=== PATIENT | female | born 1955 | race African-American/Black ===

== ENCOUNTER 2016-11-17 20:41 | Inpatient (IN) | payer MEDICAID ==
[~2016-11-17] VITALS: Ht 172.7 cm; Wt 113.5 kg
[~2016-11-17 20:41] MED LIST: ACET325T53 PO; ALBU2.5V38 NEB; ALEN70TA3 PO; BUME1TAB4 PO; CYAN500T4 PO; DEXT1DRO3 EACHEYE; DOXY150T PO; GUAI600T PO; INSU100I19 SQ; LACT10SO7 PO; LEVA15HF5 INH; MAGN400T6 PO; METF500T7 PO; NIFE60TA72 PO; OXYGEN; PANT40TA2 PO; PRED20TA PO; RIVA10TA PO; RXVAN XX; TRAM50TA92 PO
[2016-11-17] MEDS ORDERED: FUROSEMIDE 40 MG/4 ML VIAL IV ONE (21:00)
[2016-11-17] MEDS ORDERED: ASPIRIN 325 MG TABLET PO ONE (21:00)
[2016-11-17] MEDS ORDERED: ASPIRIN 325 MG TABLET ONE (21:22)
[2016-11-17] MEDS ORDERED: FUROSEMIDE 40 MG/4 ML VIAL ONE (21:22)
[2016-11-17 21:24] LABS: BASOPHILS # (AUTO) 0.2 /CMM (0.0-0.2); BASOPHILS % (AUTO) 2.2 % (0.0-2.0); EOSINOPHILS # (AUTO) 0.2 /CMM (0.0-0.7); HEMATOCRIT 41 % (33-45); HEMOGLOBIN 12.6 g/dL (11.5-14.8); LYMPHOCYTES % (AUTO) 10.2 % (20.0-44.0); MEAN CORPUSCULAR HEMOGLOBIN 23 PG (26.0-33.0); MEAN CORPUSCULAR HGB CONC 30 g/dl (31.0-36.0); MEAN CORPUSCULAR VOLUME 76 fL (82-100); MONOCYTES # (AUTO) 1.1 /CMM (0.1-1.30); MONOCYTES % (AUTO) 10.6 % (2.0-12.0); NEUTROPHILS # (AUTO) 7.6 /CMM (1.8-8.9); PLATELET COUNT (AUTO) 296 /CMM (150-450); RDW COEFFICIENT OF VARIATION 18.8 (11.5-15.0); RED BLOOD CELL COUNT(AUTO) 5.47 MIL/uL (4.0-5.2); WHITE BLOOD COUNT (AUTO) 10.1 K/uL (4.3-11.0)
[2016-11-17 21:33] LABS: CALCIUM, SERUM 8.3 mg/dL (8.5-10.1); CARBON DIOXIDE 27 mmol/L (21-32); CHLORIDE 105 mmol/L (98-107); CREATININE 0.7 mg/dL (0.6-1.3); GLUCOSE 121 mg/dL (74-106); INR 1.24 (0.87-1.13); SODIUM SERUM 139 mmol/L (136-145); UREA NITROGEN, BLOOD 18 mg/dL (7-18)
[2016-11-17 21:42] LABS: TROPONIN I < 0.017 ng/mL (0.00-0.056)
[2016-11-17 21:46] LABS: B-TYPE NATRIURETIC PEPTIDE 1545 PG/ML (0-125)
[2016-11-17 21:54] LABS: EOSINOPHILS % (MANUAL) 3 % (0-4); LYMPHOCYTES % (MANUAL) 13 % (16-48); MONOCYTES % (MANUAL) 9 % (0-11.0); NEUTROPHILS % (MANUAL) 75 (42-76)
[2016-11-17] MEDS: BLOOD SUGAR DIAGNOSTIC 1 EACH STRIP IN SCH (22:00)
[2016-11-17] MEDS ORDERED: Z GUARD REMEDY 2 OZ OINT TP PRN (22:00)
[2016-11-17] MEDS ORDERED: MAGNESIUM HYDROXIDE 30 ML UDC PO PRN (22:00)
[2016-11-17] MEDS ORDERED: ONDANSETRON HCL/PF 4 MG/2 ML VIAL IVP PRN (22:00)
[2016-11-17] MEDS ORDERED: DEXTROSE 50%-WATER 50 ML DISP.SYRIN IV PRN (22:00)
[2016-11-17] MEDS ORDERED: ZOLPIDEM TARTRATE 5 MG TABLET PO PRN (22:00)
[2016-11-17] MEDS ORDERED: MAG HYDROX/AL HYDROX/SIMETH 30 ML UDC PO PRN (22:00)
[2016-11-17] MEDS ORDERED: ALBUTEROL FS 2.5 MG/3 ML VIAL.NEB NEB PRN (22:30)
[2016-11-17] MEDS ORDERED: MORPHINE SULFATE INJ 2 MG/ML DISP.SYRIN ONE (22:41)
[2016-11-17 23:00] VITALS: BP 112/80
[2016-11-18] VITALS (7 sets, daily range): BP systolic 94–120; BP diastolic 57–80
[2016-11-18 00:30] LABS: ABG BASE EXCESS 0.7 mmol/L; ABG OXYGEN SATURATION 92.2 % (92.0-98.5); ABG PCO2 58.1 mmHg (35.0-45.0); ABG PH 7.305 (7.350-7.450); AaDO2 432.4 mmHg; COHb 1.8 % (0.5-1.5); MetHb 0.6 % (0.0-1.5); SITE, ABG Right Radial; VENT MODE, BG NRB
[2016-11-18 03:25] LABS: EOSINOPHILS # (AUTO) 0.3 /CMM (0.0-0.7); EOSINOPHILS % (AUTO) 2.7 % (0.0-6.0); HEMATOCRIT 42 % (33-45); HEMOGLOBIN 12.5 g/dL (11.5-14.8); LYMPHOCYTES % (AUTO) 10.1 % (20.0-44.0); MEAN CORPUSCULAR HEMOGLOBIN 23 PG (26.0-33.0); MEAN CORPUSCULAR HGB CONC 30 g/dl (31.0-36.0); MEAN CORPUSCULAR VOLUME 77 fL (82-100); MONOCYTES # (AUTO) 2.1 /CMM (0.1-1.30); MONOCYTES % (AUTO) 21.1 % (2.0-12.0); NEUTROPHILS # (AUTO) 6.6 /CMM (1.8-8.9); NEUTROPHILS % (AUTO) 66.1 % (43.0-81.0); PLATELET COUNT (AUTO) 225 /CMM (150-450); RDW COEFFICIENT OF VARIATION 19.1 (11.5-15.0); RED BLOOD CELL COUNT(AUTO) 5.39 MIL/uL (4.0-5.2)
[2016-11-18 03:48] LABS: ALBUMIN 3.1 g/dL (3.4-5.0); BILIRUBIN,TOTAL 0.6 mg/dL (0.2-1.0); CALCIUM, SERUM 7.9 mg/dL (8.5-10.1); CREATININE 0.6 mg/dL (0.6-1.3); MAGNESIUM 1.8 mg/dL (1.8-2.4); PHOSPHORUS 4.6 mg/dL (2.5-4.9); POTASSIUM 4.2 mmol/L (3.5-5.1); TOTAL PROTEIN, SERUM 7.7 g/dL (6.4-8.2)
[2016-11-18 04:51] LABS: EOSINOPHILS % (MANUAL) 1 % (0-4); LYMPHOCYTES % (MANUAL) 10 % (16-48); MONOCYTES % (MANUAL) 5 % (0-11.0); NEUTROPHILS % (MANUAL) 84 (42-76)
[2016-11-18] MEDS: BLOOD SUGAR DIAGNOSTIC 1 EACH STRIP IN SCH ×4 (07:39→22:33)
[2016-11-18] MEDS ORDERED: POLYVINYL ALCOHOL 15 ML BOTTLE EACHEYE PRN (08:30)
[2016-11-18] MEDS: MORPHINE SULFATE INJ 2 MG/ML DISP.SYRIN IV PRN ×4 (08:39→23:11)
[2016-11-18] MEDS: LACTULOSE 10 G/15 ML UDC (PYXIS) PO SCH ×3 (08:41→17:19)
[2016-11-18] MEDS: METFORMIN XR 500 MG TAB.SR.24H PO SCH ×2 (08:41→17:19)
[2016-11-18] MEDS: CYANOCOBALAMIN 500 MCG TABLET PO SCH (08:42)
[2016-11-18] MEDS: FUROSEMIDE 40 MG/4 ML VIAL IV SCH ×2 (08:42→17:19)
[2016-11-18] MEDS: NIFEdipine XL (30MG) 30 MG TAB PO SCH (08:42)
[2016-11-18] MEDS: GUAIFENESIN LA 600 MG TABLET.SA PO SCH ×2 (08:42→20:30)
[2016-11-18] MEDS: RIVAROXABAN 10 MG TABLET PO SCH (08:46)
[2016-11-18] MEDS: HYDROCODONE/APAP 5/325MG 1 EACH TABLET PO PRN (11:46)
[2016-11-18] MEDS ORDERED: ALBUTEROL FS 2.5 MG/3 ML VIAL.NEB NEB PRN (13:30)
[2016-11-18] MEDS: NEOMY SULF/BACITRAC ZN/POLY 15 GM TUBE TP SCH (21:15)
[2016-11-18] MEDS: INSULIN DETEMIR 100 UNIT/ML CARTRIDGE SQ SCH (22:00)
[2016-11-19] VITALS: BP 116/68
[2016-11-19] MEDS: HYDROCODONE/APAP 5/325MG 1 EACH TABLET PO PRN ×2 (02:51→15:39)
[2016-11-19 04:00] VITALS: BP 97/56
[2016-11-19] MEDS: BLOOD SUGAR DIAGNOSTIC 1 EACH STRIP IN SCH ×4 (06:37→21:50)
[2016-11-19] MEDS: MORPHINE SULFATE INJ 2 MG/ML DISP.SYRIN IV PRN ×3 (07:57→23:29)
[2016-11-19] MEDS: LACTULOSE 10 G/15 ML UDC (PYXIS) PO SCH ×3 (07:57→17:22)
[2016-11-19 08:00] VITALS: BP 111/63
[2016-11-19] MEDS: NIFEdipine XL (30MG) 30 MG TAB PO SCH (08:03)
[2016-11-19] MEDS: METFORMIN XR 500 MG TAB.SR.24H PO SCH ×2 (08:03→16:08)
[2016-11-19] MEDS: GUAIFENESIN LA 600 MG TABLET.SA PO SCH ×2 (08:03→21:54)
[2016-11-19] MEDS: FUROSEMIDE 40 MG/4 ML VIAL IV SCH ×6 (08:03→16:33)
[2016-11-19] MEDS: CYANOCOBALAMIN 500 MCG TABLET PO SCH (08:03)
[2016-11-19] MEDS: PANTOPRAZOLE 40 MG TABLET.DR PO SCH (08:04)
[2016-11-19] MEDS: NEOMY SULF/BACITRAC ZN/POLY 15 GM TUBE TP SCH (08:04)
[2016-11-19] MEDS: RIVAROXABAN 10 MG TABLET PO SCH (08:12)
[2016-11-19 10:10] LABS: ABG BASE EXCESS 4.9 mmol/L; ABG OXYGEN SATURATION 92.1 % (92.0-98.5); ABG PCO2 60.9 mmHg (35.0-45.0); ABG PH 7.343 (7.350-7.450); ABG PO2 71.4 mmHg (75.0-100.0); AaDO2 435.1 mmHg; COHb 1.5 % (0.5-1.5); MetHb 0.9 % (0.0-1.5); O2Hb 89.9 % (94.0-97.0); SITE, ABG Right Radial; VENT MODE, BG NON REBREATHER
[2016-11-19 12:13] LABS: ALBUMIN 3.1 g/dL (3.4-5.0); BASOPHILS # (AUTO) 0.4 /CMM (0.0-0.2); BASOPHILS % (AUTO) 3.1 % (0.0-2.0); BILIRUBIN,TOTAL 0.8 mg/dL (0.2-1.0); CALCIUM, SERUM 8.5 mg/dL (8.5-10.1); CREATININE 0.6 mg/dL (0.6-1.3); EOSINOPHILS # (AUTO) 0.2 /CMM (0.0-0.7); EOSINOPHILS % (AUTO) 1.6 % (0.0-6.0); HEMATOCRIT 41 % (33-45); HEMOGLOBIN 12.5 g/dL (11.5-14.8); LYMPHOCYTES # (AUTO) 0.5 /CMM (0.8-4.8); LYMPHOCYTES % (AUTO) 4.1 % (20.0-44.0); MAGNESIUM 1.6 mg/dL (1.8-2.4); MEAN CORPUSCULAR HEMOGLOBIN 23 PG (26.0-33.0); MEAN CORPUSCULAR HGB CONC 30 g/dl (31.0-36.0); MEAN CORPUSCULAR VOLUME 76 fL (82-100); MONOCYTES # (AUTO) 1.2 /CMM (0.1-1.30); MONOCYTES % (AUTO) 10.7 % (2.0-12.0); NEUTROPHILS # (AUTO) 9.3 /CMM (1.8-8.9); NEUTROPHILS % (AUTO) 80.5 % (43.0-81.0); PHOSPHORUS 3.9 mg/dL (2.5-4.9); PLATELET COUNT (AUTO) 230 /CMM (150-450); POTASSIUM 3.7 mmol/L (3.5-5.1); RDW COEFFICIENT OF VARIATION 18.4 (11.5-15.0); TOTAL PROTEIN, SERUM 8.2 g/dL (6.4-8.2); WHITE BLOOD COUNT (AUTO) 11.6 K/uL (4.3-11.0)
[2016-11-19 16:00] VITALS: BP 111/61
[2016-11-19 20:14] VITALS: BP 117/67
[2016-11-19] MEDS: INSULIN DETEMIR 100 UNIT/ML CARTRIDGE SQ SCH (21:50)
[2016-11-19] MEDS: TRAMADOL HCL 50 MG TABLET PO PRN (21:55)
[2016-11-20] VITALS (18 sets, daily range): BP systolic 89–129; BP diastolic 47–90
[2016-11-20] MEDS: MORPHINE SULFATE INJ 2 MG/ML DISP.SYRIN IV PRN (05:48)
[2016-11-20] MEDS: BLOOD SUGAR DIAGNOSTIC 1 EACH STRIP IN SCH ×4 (07:30→21:17)
[2016-11-20] MEDS: HYDROCODONE/APAP 5/325MG 1 EACH TABLET PO PRN (07:46)
[2016-11-20] MEDS: PANTOPRAZOLE 40 MG TABLET.DR PO SCH (07:46)
[2016-11-20] MEDS: FUROSEMIDE 40 MG/4 ML VIAL IV SCH ×3 (08:09→17:41)
[2016-11-20] MEDS: GUAIFENESIN LA 600 MG TABLET.SA PO SCH ×2 (08:09→21:17)
[2016-11-20] MEDS: LACTULOSE 10 G/15 ML UDC (PYXIS) PO SCH ×3 (08:09→17:42)
[2016-11-20] MEDS: CYANOCOBALAMIN 500 MCG TABLET PO SCH (08:11)
[2016-11-20] MEDS: NIFEdipine XL (30MG) 30 MG TAB PO SCH (08:11)
[2016-11-20] MEDS: RIVAROXABAN 10 MG TABLET PO SCH (08:12)
[2016-11-20] MEDS: NEOMY SULF/BACITRAC ZN/POLY 15 GM TUBE TP SCH (08:13)
[2016-11-20] MEDS: METFORMIN XR 500 MG TAB.SR.24H PO SCH ×2 (08:15→17:00)
[2016-11-20 09:09] LABS: ABG BASE EXCESS 9.2 mmol/L; ABG OXYGEN SATURATION 79.8 % (92.0-98.5); ABG PCO2 64.4 mmHg (35.0-45.0); ABG PH 7.375 (7.350-7.450); ABG PO2 46.6 mmHg (75.0-100.0); COHb 1.7 % (0.5-1.5); MetHb 0.7 % (0.0-1.5); O2Hb 77.9 % (94.0-97.0); SITE, ABG Right Radial
[2016-11-20 10:31] LABS: EOSINOPHILS # (AUTO) 0.2 /CMM (0.0-0.7); EOSINOPHILS % (AUTO) 1.7 % (0.0-6.0); HEMATOCRIT 42 % (33-45); HEMOGLOBIN 12.7 g/dL (11.5-14.8); LYMPHOCYTES # (AUTO) 0.8 /CMM (0.8-4.8); LYMPHOCYTES % (AUTO) 7.8 % (20.0-44.0); MEAN CORPUSCULAR HEMOGLOBIN 23 PG (26.0-33.0); MEAN CORPUSCULAR HGB CONC 30 g/dl (31.0-36.0); MEAN CORPUSCULAR VOLUME 77 fL (82-100); MONOCYTES # (AUTO) 0.8 /CMM (0.1-1.30); MONOCYTES % (AUTO) 7.6 % (2.0-12.0); NEUTROPHILS % (AUTO) 82.9 % (43.0-81.0); PLATELET COUNT (AUTO) 239 /CMM (150-450); RED BLOOD CELL COUNT(AUTO) 5.46 MIL/uL (4.0-5.2); WHITE BLOOD COUNT (AUTO) 10.8 K/uL (4.3-11.0)
[2016-11-20 10:44] LABS: CALCIUM, SERUM 8.6 mg/dL (8.5-10.1); CREATININE 0.5 mg/dL (0.6-1.3); MAGNESIUM 1.5 mg/dL (1.8-2.4); POTASSIUM 3.7 mmol/L (3.5-5.1)
[2016-11-20 10:47] LABS: ALBUMIN 2.9 g/dL (3.4-5.0); BILIRUBIN,DIRECT 0.2 mg/dL (0.0-0.2); BILIRUBIN,TOTAL 0.8 mg/dL (0.2-1.0)
[2016-11-20] MEDS ORDERED: IV NS 0.9% 250 ML IV ONE (12:15)
[2016-11-20] MEDS ORDERED: IV SET PRIMARY PUMP SET 1 EA INFUS.SET MC ONE (12:16)
[2016-11-20] MEDS ORDERED: SECONDARY IV SET 1 EA INFUS.SET MC ONE (12:20)
[2016-11-20] MEDS: Magnesium 1GM/D5W 100ML PREMIX 100 ML IV SCH ×2 (12:30→14:51)
[2016-11-20] MEDS ORDERED: FUROSEMIDE 40 MG/4 ML VIAL IV ONE (13:00)
[2016-11-20] MEDS: ALBUTEROL FS 2.5 MG/3 ML VIAL.NEB NEB SCH ×2 (14:34→19:18)
[2016-11-20] MEDS: TRAMADOL HCL 50 MG TABLET PO PRN ×2 (15:41→21:18)
[2016-11-20] MEDS: INSULIN DETEMIR 100 UNIT/ML CARTRIDGE SQ SCH (21:20)
[2016-11-21] VITALS (30 sets, daily range): BP systolic 87–156; BP diastolic 50–85
[2016-11-21] MEDS: ALBUTEROL FS 2.5 MG/3 ML VIAL.NEB NEB SCH ×4 (01:29→20:01)
[2016-11-21] MEDS: TRAMADOL HCL 50 MG TABLET PO PRN ×2 (04:04→19:52)
[2016-11-21 06:49] LABS: EOSINOPHILS # (AUTO) 0.3 /CMM (0.0-0.7); EOSINOPHILS % (AUTO) 2.8 % (0.0-6.0); HEMATOCRIT 40 % (33-45); HEMOGLOBIN 12.2 g/dL (11.5-14.8); LYMPHOCYTES # (AUTO) 0.7 /CMM (0.8-4.8); LYMPHOCYTES % (AUTO) 7.1 % (20.0-44.0); MEAN CORPUSCULAR HEMOGLOBIN 24 PG (26.0-33.0); MEAN CORPUSCULAR HGB CONC 31 g/dl (31.0-36.0); MEAN CORPUSCULAR VOLUME 77 fL (82-100); MONOCYTES # (AUTO) 1.1 /CMM (0.1-1.30); MONOCYTES % (AUTO) 10.4 % (2.0-12.0); NEUTROPHILS # (AUTO) 8.2 /CMM (1.8-8.9); NEUTROPHILS % (AUTO) 79.7 % (43.0-81.0); PLATELET COUNT (AUTO) 234 /CMM (150-450); RDW COEFFICIENT OF VARIATION 19.1 (11.5-15.0); RED BLOOD CELL COUNT(AUTO) 5.18 MIL/uL (4.0-5.2); WHITE BLOOD COUNT (AUTO) 10.3 K/uL (4.3-11.0)
[2016-11-21 07:18] LABS: CALCIUM, SERUM 8.6 mg/dL (8.5-10.1); CREATININE 0.5 mg/dL (0.6-1.3); MAGNESIUM 1.7 mg/dL (1.8-2.4); PHOSPHORUS 3.7 mg/dL (2.5-4.9); POTASSIUM 3.7 mmol/L (3.5-5.1)
[2016-11-21] MEDS: BLOOD SUGAR DIAGNOSTIC 1 EACH STRIP IN SCH ×4 (08:04→21:05)
[2016-11-21] MEDS ORDERED: GUAIFENESIN LA 600 MG TABLET.SA PO ONE (08:04)
[2016-11-21] MEDS: LACTULOSE 10 G/15 ML UDC (PYXIS) PO SCH ×3 (08:13→17:13)
[2016-11-21] MEDS: CYANOCOBALAMIN 500 MCG TABLET PO SCH (08:13)
[2016-11-21] MEDS: NIFEdipine XL (30MG) 30 MG TAB PO SCH (08:13)
[2016-11-21] MEDS: METFORMIN XR 500 MG TAB.SR.24H PO SCH ×2 (08:13→17:13)
[2016-11-21] MEDS: PANTOPRAZOLE 40 MG TABLET.DR PO SCH (08:13)
[2016-11-21] MEDS: GUAIFENESIN LA 600 MG TABLET.SA PO SCH ×2 (08:13→21:05)
[2016-11-21] MEDS: RIVAROXABAN 10 MG TABLET PO SCH (08:15)
[2016-11-21] MEDS: FUROSEMIDE 40 MG/4 ML VIAL IV SCH ×2 (08:16→18:22)
[2016-11-21] MEDS: NEOMY SULF/BACITRAC ZN/POLY 15 GM TUBE TP SCH (08:16)
[2016-11-21 09:19] LABS: ABG BASE EXCESS 8.4 mmol/L; ABG OXYGEN SATURATION 84.4 % (92.0-98.5); ABG PCO2 53.7 mmHg (35.0-45.0); ABG PH 7.425 (7.350-7.450); ABG PO2 50.6 mmHg (75.0-100.0); AaDO2 245.5 mmHg; COHb 2.3 % (0.5-1.5); MetHb 0.8 % (0.0-1.5); O2Hb 81.8 % (94.0-97.0); SITE, ABG Right Radial; VENT MODE, BG VENTI-MASK
[2016-11-21] MEDS: FUROSEMIDE 100 MG/10 ML VIAL IV SCH ×3 (12:13→19:49)
[2016-11-21] MEDS: INSULIN REGULAR, HUMAN 100 UNIT/ML 3 ML VIAL SQ PRN (12:15)
[2016-11-21] MEDS ORDERED: SECONDARY IV SET 1 EA INFUS.SET MC ONE (12:19)
[2016-11-21] MEDS: Magnesium 1GM/D5W 100ML PREMIX 100 ML IV SCH ×2 (12:23→14:19)
[2016-11-21 20:20] LABS: APPEARANCE,URINE TURBID (CLEAR); BILIRUBIN,URINE NEGATIVE (NEGATIVE); BLOOD, URINE 2+ Ery/uL (NEGATIVE); COLOR,URINE YELLOW (YELLOW); KETONES,URINE NEGATIVE (NEGATIVE); LEUKOCYTE ESTERASE ,URINE 3+ (NEGATIVE); NITRITE, URINE NEGATIVE (NEGATIVE); PROTEIN,URINE NEGATIVE (NEGATIVE); UGLUCOSE NEGATIVE (NEGATIVE); UROBILINOGEN,URINE 0.2 EU/dL (0.2)
[2016-11-21 20:30] LABS: TRIPLE PHOSPHATE CRYSTAL,UR Many /HPF (None Seen)
[2016-11-21 20:33] LABS: SQUAMOUS EPITHELIAL CELL,UR Few /HPF (None Seen); URINE AMORPHOUS PHOSPHATES Many /HPF (None Seen)
[2016-11-21 20:34] LABS: BACTERIA,URINE Moderate /HPF (None Seen)
[2016-11-21] MEDS: INSULIN DETEMIR 100 UNIT/ML CARTRIDGE SQ SCH (21:17)
[2016-11-22] VITALS (25 sets, daily range): BP systolic 95–138; BP diastolic 33–89
[2016-11-22] MEDS: ALBUTEROL FS 2.5 MG/3 ML VIAL.NEB NEB SCH ×4 (01:07→19:42)
[2016-11-22 07:05] LABS: CALCIUM, SERUM 8.4 mg/dL (8.5-10.1); CREATININE 0.5 mg/dL (0.6-1.3); MAGNESIUM 1.5 mg/dL (1.8-2.4); POTASSIUM 2.9 mmol/L (3.5-5.1)
[2016-11-22] MEDS: BLOOD SUGAR DIAGNOSTIC 1 EACH STRIP IN SCH ×4 (07:33→21:06)
[2016-11-22] MEDS ORDERED: POTASSIUM CHLORIDE 20 MEQ TAB.PRT.SR PO ONE (08:00)
[2016-11-22] MEDS: TRAMADOL HCL 50 MG TABLET PO PRN ×2 (08:04→14:39)
[2016-11-22] MEDS: CYANOCOBALAMIN 500 MCG TABLET PO SCH (08:05)
[2016-11-22] MEDS: FUROSEMIDE 40 MG/4 ML VIAL IV SCH (08:05)
[2016-11-22] MEDS: LACTULOSE 10 G/15 ML UDC (PYXIS) PO SCH ×3 (08:05→17:22)
[2016-11-22] MEDS: METFORMIN XR 500 MG TAB.SR.24H PO SCH ×2 (08:05→17:22)
[2016-11-22] MEDS: GUAIFENESIN LA 600 MG TABLET.SA PO SCH ×2 (08:05→20:28)
[2016-11-22] MEDS: RIVAROXABAN 10 MG TABLET PO SCH (08:06)
[2016-11-22] MEDS: PANTOPRAZOLE 40 MG TABLET.DR PO SCH (08:06)
[2016-11-22] MEDS: NEOMY SULF/BACITRAC ZN/POLY 15 GM TUBE TP SCH (08:07)
[2016-11-22] MEDS ORDERED: SECONDARY IV SET 1 EA INFUS.SET MC ONE (09:47)
[2016-11-22] MEDS: POTASSIUM CL. PREMIX PERIPHER. 50 ML IV SCH ×4 (09:51→13:58)
[2016-11-22] MEDS ORDERED: POTASSIUM CHLORIDE 20 MEQ TAB.PRT.SR PO SCH (10:00)
[2016-11-22] MEDS ORDERED: IV SET PRIMARY PUMP SET 1 EA INFUS.SET MC ONE (10:11)
[2016-11-22] MEDS: Magnesium 1GM/D5W 100ML PREMIX 100 ML IV SCH ×2 (10:16→11:09)
[2016-11-22 10:17] LABS: ABG BASE EXCESS 12.5 mmol/L; ABG OXYGEN SATURATION 87.5 % (92.0-98.5); ABG PCO2 54.5 mmHg (35.0-45.0); ABG PH 7.465 (7.350-7.450); AaDO2 312.9 mmHg; COHb 1.9 % (0.5-1.5); MetHb 0.8 % (0.0-1.5); O2Hb 85.1 % (94.0-97.0); SITE, ABG Right Radial; VENT MODE, BG NASAL CANNULA
[2016-11-22] MEDS: FUROSEMIDE 100 MG/10 ML VIAL IV SCH ×3 (13:12→21:03)
[2016-11-22] MEDS: CEFTRIAXONE 1 G in IV D5W 50 ML IV SCH (13:28)
[2016-11-22] MEDS: INSULIN DETEMIR 100 UNIT/ML CARTRIDGE SQ SCH (21:06)
[2016-11-22] MEDS: INSULIN REGULAR, HUMAN 100 UNIT/ML 3 ML VIAL SQ PRN (21:08)
[2016-11-23] VITALS (17 sets, daily range): BP systolic 86–120; BP diastolic 43–71
[2016-11-23] MEDS: ALBUTEROL FS 2.5 MG/3 ML VIAL.NEB NEB SCH ×4 (01:16→20:15)
[2016-11-23] MEDS: TRAMADOL HCL 50 MG TABLET PO PRN ×3 (03:15→21:40)
[2016-11-23] MEDS: LACTULOSE 10 G/15 ML UDC (PYXIS) PO SCH ×3 (08:00→16:32)
[2016-11-23] MEDS: METFORMIN XR 500 MG TAB.SR.24H PO SCH ×2 (08:04→16:48)
[2016-11-23] MEDS: CYANOCOBALAMIN 500 MCG TABLET PO SCH (08:04)
[2016-11-23] MEDS: PANTOPRAZOLE 40 MG TABLET.DR PO SCH (08:04)
[2016-11-23] MEDS: GUAIFENESIN LA 600 MG TABLET.SA PO SCH ×2 (08:04→21:30)
[2016-11-23] MEDS: NEOMY SULF/BACITRAC ZN/POLY 15 GM TUBE TP SCH (08:05)
[2016-11-23] MEDS: RIVAROXABAN 10 MG TABLET PO SCH (08:05)
[2016-11-23 08:19] LABS: CALCIUM, SERUM 8.8 mg/dL (8.5-10.1); CREATININE 0.6 mg/dL (0.6-1.3); MAGNESIUM 1.7 mg/dL (1.8-2.4); POTASSIUM 3.4 mmol/L (3.5-5.1)
[2016-11-23] MEDS: BLOOD SUGAR DIAGNOSTIC 1 EACH STRIP IN SCH ×4 (08:46→21:31)
[2016-11-23] MEDS: CEFTRIAXONE 1 G in IV D5W 50 ML IV SCH (11:06)
[2016-11-23] MEDS ORDERED: POTASSIUM CHLORIDE 20 MEQ TAB.PRT.SR PO SCH ×2 (11:30→14:00)
[2016-11-23] MEDS: Magnesium 1GM/D5W 100ML PREMIX 100 ML IV SCH ×2 (12:07→12:59)
[2016-11-23] MEDS: FUROSEMIDE 100 MG/10 ML VIAL IV SCH ×3 (15:22→21:30)
[2016-11-23] MEDS: INSULIN DETEMIR 100 UNIT/ML CARTRIDGE SQ SCH (21:44)
[2016-11-24] VITALS: BP 107/65
[2016-11-24] MEDS: ALBUTEROL FS 2.5 MG/3 ML VIAL.NEB NEB SCH ×4 (02:02→20:02)
[2016-11-24 04:00] VITALS: BP 95/58
[2016-11-24] MEDS: TRAMADOL HCL 50 MG TABLET PO PRN ×2 (05:09→21:47)
[2016-11-24] MEDS: BLOOD SUGAR DIAGNOSTIC 1 EACH STRIP IN SCH ×4 (06:34→21:53)
[2016-11-24] MEDS: PANTOPRAZOLE 40 MG TABLET.DR PO SCH (06:34)
[2016-11-24] MEDS: ALENDRONATE 70 MG TABLET PO SCH (06:35)
[2016-11-24 07:48] LABS: BASOPHILS % (AUTO) 0.1 % (0.0-2.0); EOSINOPHILS # (AUTO) 0.3 /CMM (0.0-0.7); EOSINOPHILS % (AUTO) 3.3 % (0.0-6.0); HEMATOCRIT 41 % (33-45); HEMOGLOBIN 12.6 g/dL (11.5-14.8); LYMPHOCYTES # (AUTO) 0.3 /CMM (0.8-4.8); LYMPHOCYTES % (AUTO) 3.7 % (20.0-44.0); MEAN CORPUSCULAR HEMOGLOBIN 23 PG (26.0-33.0); MEAN CORPUSCULAR HGB CONC 31 g/dl (31.0-36.0); MEAN CORPUSCULAR VOLUME 76 fL (82-100); MONOCYTES # (AUTO) 1.2 /CMM (0.1-1.30); MONOCYTES % (AUTO) 12.9 % (2.0-12.0); NEUTROPHILS # (AUTO) 7.3 /CMM (1.8-8.9); PLATELET COUNT (AUTO) 256 /CMM (150-450); RDW COEFFICIENT OF VARIATION 19.3 (11.5-15.0); RED BLOOD CELL COUNT(AUTO) 5.42 MIL/uL (4.0-5.2); WHITE BLOOD COUNT (AUTO) 9.1 K/uL (4.3-11.0)
[2016-11-24 08:00] VITALS: BP 95/63
[2016-11-24] MEDS: LACTULOSE 10 G/15 ML UDC (PYXIS) PO SCH ×3 (08:39→17:17)
[2016-11-24] MEDS: CYANOCOBALAMIN 500 MCG TABLET PO SCH (08:40)
[2016-11-24] MEDS: RIVAROXABAN 10 MG TABLET PO SCH (08:40)
[2016-11-24] MEDS: MULTIPLE VIT/MINERALS 1 EA TABLET PO SCH (08:40)
[2016-11-24] MEDS: GUAIFENESIN LA 600 MG TABLET.SA PO SCH ×2 (08:40→21:47)
[2016-11-24] MEDS: BOOST GLUCOSE CONTROL VANILLA 237 ML BOX PO SCH (08:41)
[2016-11-24] MEDS: METFORMIN XR 500 MG TAB.SR.24H PO SCH ×2 (08:41→17:18)
[2016-11-24] MEDS: NEOMY SULF/BACITRAC ZN/POLY 15 GM TUBE TP SCH (08:41)
[2016-11-24 09:04] LABS: ALBUMIN 3.1 g/dL (3.4-5.0); BILIRUBIN,TOTAL 0.8 mg/dL (0.2-1.0); CALCIUM, SERUM 8.9 mg/dL (8.5-10.1); CREATININE 0.6 mg/dL (0.6-1.3); MAGNESIUM 1.6 mg/dL (1.8-2.4); PHOSPHORUS 4.1 mg/dL (2.5-4.9); POTASSIUM 3.5 mmol/L (3.5-5.1); TOTAL PROTEIN, SERUM 8.3 g/dL (6.4-8.2)
[2016-11-24] MEDS ORDERED: IV SET PRIMARY PUMP SET 1 EA INFUS.SET MC ONE ×2 (09:49→13:05)
[2016-11-24] MEDS: Magnesium 1GM/D5W 100ML PREMIX 100 ML IV SCH ×2 (09:54→12:01)
[2016-11-24] MEDS: POTASSIUM CHLORIDE 20 MEQ TAB.PRT.SR PO SCH ×3 (09:54→13:07)
[2016-11-24] MEDS: FUROSEMIDE 40 MG TABLET PO SCH (09:55)
[2016-11-24] MEDS: CEFTRIAXONE 1 G in IV D5W 50 ML IV SCH (11:59)
[2016-11-24 12:00] VITALS: BP 103/68
[2016-11-24 16:00] VITALS: BP_SYST 101; BP_SYST 124; BP_DIAS 59; BP_DIAS 80
[2016-11-24 20:00] VITALS: BP 101/69
[2016-11-24] MEDS: INSULIN DETEMIR 100 UNIT/ML CARTRIDGE SQ SCH (21:54)
[2016-11-25] MEDS: ALBUTEROL FS 2.5 MG/3 ML VIAL.NEB NEB SCH ×4 (01:44→20:30)
[2016-11-25] MEDS: TRAMADOL HCL 50 MG TABLET PO PRN ×2 (03:17→11:57)
[2016-11-25 04:00] VITALS: BP 109/69
[2016-11-25] MEDS: PANTOPRAZOLE 40 MG TABLET.DR PO SCH (06:44)
[2016-11-25] MEDS: BLOOD SUGAR DIAGNOSTIC 1 EACH STRIP IN SCH ×4 (06:44→21:09)
[2016-11-25 07:09] LABS: CALCIUM, SERUM 8.8 mg/dL (8.5-10.1); CREATININE 0.6 mg/dL (0.6-1.3); POTASSIUM 3.8 mmol/L (3.5-5.1)
[2016-11-25 08:00] VITALS: BP 99/63
[2016-11-25] MEDS: CYANOCOBALAMIN 500 MCG TABLET PO SCH (09:00)
[2016-11-25] MEDS: NEOMY SULF/BACITRAC ZN/POLY 15 GM TUBE TP SCH (09:00)
[2016-11-25] MEDS: BOOST GLUCOSE CONTROL VANILLA 237 ML BOX PO SCH (09:00)
[2016-11-25] MEDS: METFORMIN XR 500 MG TAB.SR.24H PO SCH ×2 (09:00→17:00)
[2016-11-25] MEDS: MULTIPLE VIT/MINERALS 1 EA TABLET PO SCH (11:56)
[2016-11-25] MEDS: LACTULOSE 10 G/15 ML UDC (PYXIS) PO SCH ×3 (11:56→18:00)
[2016-11-25] MEDS: FUROSEMIDE 40 MG TABLET PO SCH (11:58)
[2016-11-25] MEDS: GUAIFENESIN LA 600 MG TABLET.SA PO SCH ×2 (11:58→21:05)
[2016-11-25] MEDS: POTASSIUM CHLORIDE 20 MEQ TAB.PRT.SR PO SCH (11:58)
[2016-11-25] MEDS: RIVAROXABAN 10 MG TABLET PO SCH (12:01)
[2016-11-25] MEDS: CEFTRIAXONE 1 G in IV D5W 50 ML IV SCH (12:19)
[2016-11-25] MEDS ORDERED: IV NS 0.9% 250 ML IV ONE (12:27)
[2016-11-25 16:00] VITALS: BP 111/56
[2016-11-25 20:00] VITALS: BP 106/66
[2016-11-25] MEDS: INSULIN DETEMIR 100 UNIT/ML CARTRIDGE SQ SCH (21:10)
[2016-11-26] MEDS: ALBUTEROL FS 2.5 MG/3 ML VIAL.NEB NEB SCH ×4 (01:30→19:39)
[2016-11-26 04:00] VITALS: BP 109/67
[2016-11-26] MEDS: BLOOD SUGAR DIAGNOSTIC 1 EACH STRIP IN SCH ×4 (07:49→21:51)
[2016-11-26] MEDS: PANTOPRAZOLE 40 MG TABLET.DR PO SCH (07:54)
[2016-11-26 07:55] LABS: CALCIUM, SERUM 8.8 mg/dL (8.5-10.1); CREATININE 0.6 mg/dL (0.6-1.3); POTASSIUM 3.7 mmol/L (3.5-5.1)
[2016-11-26] MEDS: TRAMADOL HCL 50 MG TABLET PO PRN ×2 (07:55→14:24)
[2016-11-26] MEDS: LACTULOSE 10 G/15 ML UDC (PYXIS) PO SCH ×3 (07:57→17:13)
[2016-11-26 08:00] VITALS: BP 90/55
[2016-11-26] MEDS: MULTIPLE VIT/MINERALS 1 EA TABLET PO SCH (10:32)
[2016-11-26] MEDS: POTASSIUM CHLORIDE 20 MEQ TAB.PRT.SR PO SCH (10:32)
[2016-11-26] MEDS: CYANOCOBALAMIN 500 MCG TABLET PO SCH (10:33)
[2016-11-26] MEDS: GUAIFENESIN LA 600 MG TABLET.SA PO SCH ×2 (10:33→21:43)
[2016-11-26] MEDS: FUROSEMIDE 40 MG TABLET PO SCH (10:33)
[2016-11-26] MEDS: METFORMIN XR 500 MG TAB.SR.24H PO SCH ×2 (10:33→17:13)
[2016-11-26] MEDS: BOOST GLUCOSE CONTROL VANILLA 237 ML BOX PO SCH (10:36)
[2016-11-26] MEDS: RIVAROXABAN 10 MG TABLET PO SCH (10:37)
[2016-11-26] MEDS: NEOMY SULF/BACITRAC ZN/POLY 15 GM TUBE TP SCH (10:41)
[2016-11-26] MEDS ORDERED: IV SET PRIMARY PUMP SET 1 EA INFUS.SET MC ONE (11:45)
[2016-11-26] MEDS ORDERED: IV NS 0.9% 250 ML IV ONE (11:45)
[2016-11-26] MEDS ORDERED: SECONDARY IV SET 1 EA INFUS.SET MC ONE (11:45)
[2016-11-26] MEDS: CEFTRIAXONE 1 G in IV D5W 50 ML IV SCH (11:47)
[2016-11-26 12:20] LABS: ABG BASE EXCESS 6.2 mmol/L; ABG OXYGEN SATURATION 80.9 % (92.0-98.5); ABG PCO2 46.6 mmHg (35.0-45.0); ABG PH 7.445 (7.350-7.450); ABG PO2 46.1 mmHg (75.0-100.0); AaDO2 185.5 mmHg; COHb 1.8 % (0.5-1.5); MetHb 0.6 % (0.0-1.5); SITE, ABG Right Radial; VENT MODE, BG Nasal Cannula
[2016-11-26 20:00] VITALS: BP 106/57
[2016-11-26] MEDS: INSULIN DETEMIR 100 UNIT/ML CARTRIDGE SQ SCH (21:51)
[2016-11-27] MEDS: ALBUTEROL FS 2.5 MG/3 ML VIAL.NEB NEB SCH ×4 (01:22→19:30)
[2016-11-27] MEDS: ACETAMINOPHEN 325 MG TABLET PO PRN (03:19)
[2016-11-27 04:00] VITALS: BP 116/60
[2016-11-27] MEDS: TRAMADOL HCL 50 MG TABLET PO PRN ×3 (04:18→22:07)
[2016-11-27] MEDS: BLOOD SUGAR DIAGNOSTIC 1 EACH STRIP IN SCH ×4 (06:43→21:22)
[2016-11-27 07:19] LABS: CALCIUM, SERUM 8.3 mg/dL (8.5-10.1); CREATININE 0.6 mg/dL (0.6-1.3); POTASSIUM 3.9 mmol/L (3.5-5.1)
[2016-11-27 08:00] VITALS: BP 106/61
[2016-11-27] MEDS: LACTULOSE 10 G/15 ML UDC (PYXIS) PO SCH ×3 (08:09→17:01)
[2016-11-27] MEDS: PANTOPRAZOLE 40 MG TABLET.DR PO SCH (08:09)
[2016-11-27] MEDS: CYANOCOBALAMIN 500 MCG TABLET PO SCH (08:09)
[2016-11-27] MEDS: METFORMIN XR 500 MG TAB.SR.24H PO SCH ×2 (08:09→17:01)
[2016-11-27] MEDS: MULTIPLE VIT/MINERALS 1 EA TABLET PO SCH (08:09)
[2016-11-27] MEDS: RIVAROXABAN 10 MG TABLET PO SCH (08:10)
[2016-11-27] MEDS: FUROSEMIDE 40 MG TABLET PO SCH (08:10)
[2016-11-27] MEDS: POTASSIUM CHLORIDE 20 MEQ TAB.PRT.SR PO SCH (08:10)
[2016-11-27] MEDS: GUAIFENESIN LA 600 MG TABLET.SA PO SCH ×2 (08:10→21:19)
[2016-11-27] MEDS: NEOMY SULF/BACITRAC ZN/POLY 15 GM TUBE TP SCH (08:11)
[2016-11-27] MEDS: BOOST GLUCOSE CONTROL VANILLA 237 ML BOX PO SCH (08:18)
[2016-11-27] MEDS: CEFTRIAXONE 1 G in IV D5W 50 ML IV SCH (11:42)
[2016-11-27] MEDS: FUROSEMIDE 100 MG/10 ML VIAL IV SCH ×3 (11:42→18:32)
[2016-11-27 16:00] VITALS: BP_SYST 90; BP_SYST 96; BP_DIAS 42; BP_DIAS 61
[2016-11-27] MEDS: INSULIN REGULAR, HUMAN 100 UNIT/ML 3 ML VIAL SQ PRN (17:52)
[2016-11-27 20:00] VITALS: BP 118/75
[2016-11-27] MEDS: INSULIN DETEMIR 100 UNIT/ML CARTRIDGE SQ SCH (21:27)
[2016-11-28] MEDS: ALBUTEROL FS 2.5 MG/3 ML VIAL.NEB NEB SCH ×4 (01:30→19:59)
[2016-11-28 04:00] VITALS: BP 143/100
[2016-11-28] MEDS: TRAMADOL HCL 50 MG TABLET PO PRN ×3 (05:23→21:09)
[2016-11-28] MEDS: BLOOD SUGAR DIAGNOSTIC 1 EACH STRIP IN SCH ×4 (06:36→21:24)
[2016-11-28 07:05] LABS: EOSINOPHILS # (AUTO) 0.4 /CMM (0.0-0.7); EOSINOPHILS % (AUTO) 3.7 % (0.0-6.0); HEMATOCRIT 43 % (33-45); HEMOGLOBIN 13.2 g/dL (11.5-14.8); LYMPHOCYTES # (AUTO) 0.9 /CMM (0.8-4.8); LYMPHOCYTES % (AUTO) 9.1 % (20.0-44.0); MEAN CORPUSCULAR HEMOGLOBIN 23 PG (26.0-33.0); MEAN CORPUSCULAR HGB CONC 31 g/dl (31.0-36.0); MEAN CORPUSCULAR VOLUME 77 fL (82-100); MONOCYTES # (AUTO) 1.1 /CMM (0.1-1.30); MONOCYTES % (AUTO) 11.5 % (2.0-12.0); NEUTROPHILS # (AUTO) 7.1 /CMM (1.8-8.9); NEUTROPHILS % (AUTO) 75.7 % (43.0-81.0); PLATELET COUNT (AUTO) 242 /CMM (150-450); RDW COEFFICIENT OF VARIATION 18.1 (11.5-15.0); RED BLOOD CELL COUNT(AUTO) 5.63 MIL/uL (4.0-5.2); WHITE BLOOD COUNT (AUTO) 9.4 K/uL (4.3-11.0)
[2016-11-28 07:18] LABS: ALBUMIN 3.1 g/dL (3.4-5.0); BILIRUBIN,TOTAL 0.6 mg/dL (0.2-1.0); CALCIUM, SERUM 8.2 mg/dL (8.5-10.1); CREATININE 0.7 mg/dL (0.6-1.3); MAGNESIUM 1.6 mg/dL (1.8-2.4); PHOSPHORUS 4.2 mg/dL (2.5-4.9); POTASSIUM 3.7 mmol/L (3.5-5.1); TOTAL PROTEIN, SERUM 8.2 g/dL (6.4-8.2)
[2016-11-28 08:00] VITALS: BP 95/68
[2016-11-28] MEDS: LACTULOSE 10 G/15 ML UDC (PYXIS) PO SCH ×3 (08:00→17:39)
[2016-11-28] MEDS: MULTIPLE VIT/MINERALS 1 EA TABLET PO SCH (09:05)
[2016-11-28] MEDS: PANTOPRAZOLE 40 MG TABLET.DR PO SCH (09:06)
[2016-11-28] MEDS: GUAIFENESIN LA 600 MG TABLET.SA PO SCH ×2 (09:06→21:09)
[2016-11-28] MEDS: METFORMIN XR 500 MG TAB.SR.24H PO SCH ×2 (09:06→17:39)
[2016-11-28] MEDS: CYANOCOBALAMIN 500 MCG TABLET PO SCH (09:06)
[2016-11-28] MEDS: POTASSIUM CHLORIDE 20 MEQ TAB.PRT.SR PO SCH ×3 (09:06→13:00)
[2016-11-28] MEDS: RIVAROXABAN 10 MG TABLET PO SCH (09:07)
[2016-11-28] MEDS: BOOST GLUCOSE CONTROL VANILLA 237 ML BOX PO SCH (09:18)
[2016-11-28] MEDS: NEOMY SULF/BACITRAC ZN/POLY 15 GM TUBE TP SCH (09:19)
[2016-11-28 09:35] LABS: ABG BASE EXCESS 5.3 mmol/L; ABG OXYGEN SATURATION 83.5 % (92.0-98.5); ABG PCO2 48.1 mmHg (35.0-45.0); ABG PH 7.423 (7.350-7.450); ABG PO2 50.3 mmHg (75.0-100.0); AaDO2 179.6 mmHg; MetHb 0.7 % (0.0-1.5); O2Hb 81.2 % (94.0-97.0); SITE, ABG Right Radial; VENT MODE, BG Nasal Cannula
[2016-11-28 12:00] VITALS: BP 128/59
[2016-11-28] MEDS ORDERED: IV SET PRIMARY PUMP SET 1 EA INFUS.SET MC ONE (12:28)
[2016-11-28] MEDS ORDERED: SECONDARY IV SET 1 EA INFUS.SET MC ONE (12:41)
[2016-11-28] MEDS: Magnesium 1GM/D5W 100ML PREMIX 100 ML IV SCH ×2 (12:43→14:06)
[2016-11-28] MEDS: FUROSEMIDE 100 MG/10 ML VIAL IV SCH ×3 (12:46→21:09)
[2016-11-28 16:00] VITALS: BP 102/66
[2016-11-28 20:00] VITALS: BP 97/64
[2016-11-28] MEDS: INSULIN DETEMIR 100 UNIT/ML CARTRIDGE SQ SCH (21:15)
[2016-11-29] MEDS: ACETAMINOPHEN 325 MG TABLET PO PRN (01:30)
[2016-11-29] MEDS: ALBUTEROL FS 2.5 MG/3 ML VIAL.NEB NEB SCH ×4 (01:43→20:12)
[2016-11-29 08:00] VITALS: BP 107/70
[2016-11-29] MEDS: LACTULOSE 10 G/15 ML UDC (PYXIS) PO SCH ×3 (08:00→18:00)
[2016-11-29 08:02] LABS: CALCIUM, SERUM 8.3 mg/dL (8.5-10.1); CREATININE 0.6 mg/dL (0.6-1.3); MAGNESIUM 1.8 mg/dL (1.8-2.4); POTASSIUM 3.9 mmol/L (3.5-5.1)
[2016-11-29] MEDS: PANTOPRAZOLE 40 MG TABLET.DR PO SCH (08:13)
[2016-11-29] MEDS: TRAMADOL HCL 50 MG TABLET PO PRN ×3 (08:14→22:30)
[2016-11-29] MEDS: MULTIPLE VIT/MINERALS 1 EA TABLET PO SCH (08:14)
[2016-11-29] MEDS: CYANOCOBALAMIN 500 MCG TABLET PO SCH (08:15)
[2016-11-29] MEDS: METFORMIN XR 500 MG TAB.SR.24H PO SCH ×2 (08:15→17:40)
[2016-11-29] MEDS: POTASSIUM CHLORIDE 20 MEQ TAB.PRT.SR PO SCH (08:15)
[2016-11-29] MEDS: RIVAROXABAN 10 MG TABLET PO SCH (08:16)
[2016-11-29] MEDS: NEOMY SULF/BACITRAC ZN/POLY 15 GM TUBE TP SCH (08:17)
[2016-11-29] MEDS: BLOOD SUGAR DIAGNOSTIC 1 EACH STRIP IN SCH ×4 (08:18→21:14)
[2016-11-29] MEDS: BOOST GLUCOSE CONTROL VANILLA 237 ML BOX PO SCH (08:18)
[2016-11-29] MEDS: GUAIFENESIN LA 600 MG TABLET.SA PO SCH ×2 (08:37→21:14)
[2016-11-29] MEDS ORDERED: POTASSIUM CHLORIDE 20 MEQ TAB.PRT.SR PO SCH (10:00)
[2016-11-29] MEDS: FUROSEMIDE 100 MG/10 ML VIAL IV SCH ×3 (11:04→17:39)
[2016-11-29 16:00] VITALS: BP_SYST 105; BP_DIAS 64; BP_DIAS 93
[2016-11-29 20:00] VITALS: BP 107/79
[2016-11-29] MEDS: INSULIN DETEMIR 100 UNIT/ML CARTRIDGE SQ SCH (21:19)
[2016-11-30] MEDS: ALBUTEROL FS 2.5 MG/3 ML VIAL.NEB NEB SCH ×4 (01:07→20:10)
[2016-11-30] MEDS: ACETAMINOPHEN 325 MG TABLET PO PRN (02:18)
[2016-11-30 04:00] VITALS: BP 124/80
[2016-11-30] MEDS: TRAMADOL HCL 50 MG TABLET PO PRN ×2 (05:08→15:13)
[2016-11-30 07:04] LABS: EOSINOPHILS # (AUTO) 0.3 /CMM (0.0-0.7); EOSINOPHILS % (AUTO) 2.7 % (0.0-6.0); HEMATOCRIT 45 % (33-45); HEMOGLOBIN 13.8 g/dL (11.5-14.8); LYMPHOCYTES # (AUTO) 1.1 /CMM (0.8-4.8); LYMPHOCYTES % (AUTO) 11.4 % (20.0-44.0); MEAN CORPUSCULAR HEMOGLOBIN 24 PG (26.0-33.0); MEAN CORPUSCULAR HGB CONC 31 g/dl (31.0-36.0); MEAN CORPUSCULAR VOLUME 76 fL (82-100); MONOCYTES # (AUTO) 1.1 /CMM (0.1-1.30); MONOCYTES % (AUTO) 11.3 % (2.0-12.0); NEUTROPHILS # (AUTO) 7.4 /CMM (1.8-8.9); NEUTROPHILS % (AUTO) 74.6 % (43.0-81.0); PLATELET COUNT (AUTO) 267 /CMM (150-450); RDW COEFFICIENT OF VARIATION 19.1 (11.5-15.0); RED BLOOD CELL COUNT(AUTO) 5.87 MIL/uL (4.0-5.2); WHITE BLOOD COUNT (AUTO) 9.9 K/uL (4.3-11.0)
[2016-11-30 07:28] LABS: ALBUMIN 3.2 g/dL (3.4-5.0); BILIRUBIN,TOTAL 0.6 mg/dL (0.2-1.0); CALCIUM, SERUM 8.4 mg/dL (8.5-10.1); CREATININE 0.6 mg/dL (0.6-1.3); PHOSPHORUS 3.9 mg/dL (2.5-4.9); POTASSIUM 3.9 mmol/L (3.5-5.1); TOTAL PROTEIN, SERUM 8.6 g/dL (6.4-8.2)
[2016-11-30] MEDS: BLOOD SUGAR DIAGNOSTIC 1 EACH STRIP IN SCH ×4 (08:00→22:09)
[2016-11-30] MEDS: LACTULOSE 10 G/15 ML UDC (PYXIS) PO SCH ×3 (08:03→17:00)
[2016-11-30] MEDS: MULTIPLE VIT/MINERALS 1 EA TABLET PO SCH (08:03)
[2016-11-30] MEDS: RIVAROXABAN 10 MG TABLET PO SCH (08:04)
[2016-11-30] MEDS: GUAIFENESIN LA 600 MG TABLET.SA PO SCH ×2 (08:05→22:08)
[2016-11-30] MEDS: POTASSIUM CHLORIDE 20 MEQ TAB.PRT.SR PO SCH (08:05)
[2016-11-30] MEDS: METFORMIN XR 500 MG TAB.SR.24H PO SCH ×2 (08:05→17:00)
[2016-11-30] MEDS: PANTOPRAZOLE 40 MG TABLET.DR PO SCH (08:05)
[2016-11-30] MEDS: CYANOCOBALAMIN 500 MCG TABLET PO SCH (08:05)
[2016-11-30] MEDS: BOOST GLUCOSE CONTROL VANILLA 237 ML BOX PO SCH (08:07)
[2016-11-30 08:09] VITALS: BP 115/79
[2016-11-30] MEDS: NEOMY SULF/BACITRAC ZN/POLY 15 GM TUBE TP SCH (08:15)
[2016-11-30] MEDS ORDERED: POTASSIUM CHLORIDE 20 MEQ TAB.PRT.SR PO SCH (09:00)
[2016-11-30] MEDS: FUROSEMIDE 80 MG TABLET PO SCH (09:00)
[2016-11-30 09:13] VITALS: BP 115/79
[2016-11-30 10:00] VITALS: BP 103/68
[2016-11-30] MEDS: INSULIN REGULAR, HUMAN 100 UNIT/ML 3 ML VIAL SQ PRN (11:29)
[2016-11-30 16:00] VITALS: BP 110/71
[2016-11-30 20:00] VITALS: BP 95/68
[2016-11-30] MEDS: INSULIN DETEMIR 100 UNIT/ML CARTRIDGE SQ SCH (22:00)
[2016-12-01] MEDS: TRAMADOL HCL 50 MG TABLET PO PRN ×2 (00:11→17:31)
[2016-12-01] MEDS: ALBUTEROL FS 2.5 MG/3 ML VIAL.NEB NEB SCH ×4 (01:44→19:41)
[2016-12-01 04:00] VITALS: BP 105/66
[2016-12-01] MEDS: ACETAMINOPHEN 325 MG TABLET PO PRN (05:48)
[2016-12-01] MEDS: ALENDRONATE 70 MG TABLET PO SCH (05:49)
[2016-12-01] MEDS: PANTOPRAZOLE 40 MG TABLET.DR PO SCH (07:09)
[2016-12-01] MEDS: BLOOD SUGAR DIAGNOSTIC 1 EACH STRIP IN SCH ×4 (07:09→21:23)
[2016-12-01 07:47] LABS: CALCIUM, SERUM 8.5 mg/dL (8.5-10.1); CREATININE 0.6 mg/dL (0.6-1.3); POTASSIUM 3.9 mmol/L (3.5-5.1)
[2016-12-01 08:00] VITALS: BP 99/58
[2016-12-01 09:14] LABS: ABG BASE EXCESS 3.5 mmol/L; ABG OXYGEN SATURATION 79.5 % (92.0-98.5); ABG PCO2 41.6 mmHg (35.0-45.0); ABG PH 7.444 (7.350-7.450); AaDO2 164.4 mmHg; COHb 1.8 % (0.5-1.5); MetHb 0.9 % (0.0-1.5); O2Hb 77.4 % (94.0-97.0); SITE, ABG Right Radial; VENT MODE, BG NASAL CANNULA
[2016-12-01] MEDS: METFORMIN XR 500 MG TAB.SR.24H PO SCH ×2 (09:14→17:31)
[2016-12-01] MEDS: POTASSIUM CHLORIDE 20 MEQ TAB.PRT.SR PO SCH (09:14)
[2016-12-01] MEDS: CYANOCOBALAMIN 500 MCG TABLET PO SCH (09:14)
[2016-12-01] MEDS: GUAIFENESIN LA 600 MG TABLET.SA PO SCH ×2 (09:14→21:22)
[2016-12-01] MEDS: MULTIPLE VIT/MINERALS 1 EA TABLET PO SCH (09:15)
[2016-12-01] MEDS: FUROSEMIDE 80 MG TABLET PO SCH (09:15)
[2016-12-01] MEDS: LACTULOSE 10 G/15 ML UDC (PYXIS) PO SCH ×3 (09:15→17:31)
[2016-12-01] MEDS: RIVAROXABAN 10 MG TABLET PO SCH (09:27)
[2016-12-01] MEDS: BOOST GLUCOSE CONTROL VANILLA 237 ML BOX PO SCH (09:28)
[2016-12-01] MEDS: NEOMY SULF/BACITRAC ZN/POLY 15 GM TUBE TP SCH (09:28)
[2016-12-01 20:00] VITALS: BP 131/75
[2016-12-01] MEDS: INSULIN DETEMIR 100 UNIT/ML CARTRIDGE SQ SCH (21:31)
[2016-12-02] MEDS: ALBUTEROL FS 2.5 MG/3 ML VIAL.NEB NEB SCH ×4 (01:25→19:34)
[2016-12-02] MEDS: TRAMADOL HCL 50 MG TABLET PO PRN ×6 (04:17→21:48)
[2016-12-02 08:00] VITALS: BP 119/73
[2016-12-02] MEDS: BLOOD SUGAR DIAGNOSTIC 1 EACH STRIP IN SCH ×4 (08:22→22:00)
[2016-12-02] MEDS: LACTULOSE 10 G/15 ML UDC (PYXIS) PO SCH ×3 (08:22→17:38)
[2016-12-02] MEDS: METFORMIN XR 500 MG TAB.SR.24H PO SCH ×2 (08:22→17:00)
[2016-12-02] MEDS: MULTIPLE VIT/MINERALS 1 EA TABLET PO SCH (08:22)
[2016-12-02] MEDS: RIVAROXABAN 10 MG TABLET PO SCH (08:23)
[2016-12-02] MEDS: BOOST GLUCOSE CONTROL VANILLA 237 ML BOX PO SCH (08:24)
[2016-12-02] MEDS: CYANOCOBALAMIN 500 MCG TABLET PO SCH (08:24)
[2016-12-02] MEDS: PANTOPRAZOLE 40 MG TABLET.DR PO SCH (08:24)
[2016-12-02] MEDS: FUROSEMIDE 80 MG TABLET PO SCH (08:24)
[2016-12-02] MEDS: GUAIFENESIN LA 600 MG TABLET.SA PO SCH ×2 (08:24→21:45)
[2016-12-02] MEDS: NEOMY SULF/BACITRAC ZN/POLY 15 GM TUBE TP SCH (08:25)
[2016-12-02] MEDS: POTASSIUM CHLORIDE 20 MEQ TAB.PRT.SR PO SCH ×4 (08:25→12:38)
[2016-12-02] MEDS ORDERED: BUMETANIDE INJ 16 MG in IV NS 0.9% 16 ML IV ONE (09:30)
[2016-12-02] MEDS ORDERED: IV SET PRIMARY PUMP SET 1 EA INFUS.SET MC ONE (10:13)
[2016-12-02] MEDS ORDERED: SECONDARY IV SET 1 EA INFUS.SET MC ONE (10:16)
[2016-12-02] MEDS ORDERED: IV NS 0.9% 250 ML IV ONE (10:22)
[2016-12-02 20:46] VITALS: BP 90/55
[2016-12-02] MEDS: INSULIN DETEMIR 100 UNIT/ML CARTRIDGE SQ SCH (22:00)
[2016-12-03] MEDS: ALBUTEROL FS 2.5 MG/3 ML VIAL.NEB NEB SCH ×4 (01:28→19:40)
[2016-12-03] MEDS: TRAMADOL HCL 50 MG TABLET PO PRN ×4 (02:18→20:33)
[2016-12-03 08:00] VITALS: BP 101/67
[2016-12-03 08:13] LABS: CALCIUM, SERUM 8.9 mg/dL (8.5-10.1); CREATININE 0.7 mg/dL (0.6-1.3); MAGNESIUM 1.7 mg/dL (1.8-2.4)
[2016-12-03] MEDS: BLOOD SUGAR DIAGNOSTIC 1 EACH STRIP IN SCH ×4 (08:21→21:50)
[2016-12-03] MEDS: CYANOCOBALAMIN 500 MCG TABLET PO SCH (08:22)
[2016-12-03] MEDS: GUAIFENESIN LA 600 MG TABLET.SA PO SCH ×2 (08:22→20:31)
[2016-12-03] MEDS: METFORMIN XR 500 MG TAB.SR.24H PO SCH ×2 (08:22→16:55)
[2016-12-03] MEDS: MULTIPLE VIT/MINERALS 1 EA TABLET PO SCH (08:22)
[2016-12-03] MEDS: PANTOPRAZOLE 40 MG TABLET.DR PO SCH (08:23)
[2016-12-03] MEDS: LACTULOSE 10 G/15 ML UDC (PYXIS) PO SCH ×3 (08:23→17:00)
[2016-12-03] MEDS: BOOST GLUCOSE CONTROL VANILLA 237 ML BOX PO SCH (09:39)
[2016-12-03] MEDS: NEOMY SULF/BACITRAC ZN/POLY 15 GM TUBE TP SCH (09:41)
[2016-12-03] MEDS: RIVAROXABAN 10 MG TABLET PO SCH (09:41)
[2016-12-03] MEDS: FUROSEMIDE 80 MG TABLET PO SCH (09:51)
[2016-12-03] MEDS: POTASSIUM CHLORIDE 20 MEQ TAB.PRT.SR PO SCH (09:51)
[2016-12-03] MEDS ORDERED: FUROSEMIDE 80 MG TABLET PO SCH (10:00)
[2016-12-03] MEDS ORDERED: POTASSIUM CHLORIDE 20 MEQ TAB.PRT.SR PO SCH (10:00)
[2016-12-03] MEDS ORDERED: IV SET PRIMARY PUMP SET 1 EA INFUS.SET MC ONE (11:03)
[2016-12-03] MEDS: Magnesium 1GM/D5W 100ML PREMIX 100 ML IV SCH ×2 (11:08→12:09)
[2016-12-03] MEDS: INSULIN REGULAR, HUMAN 100 UNIT/ML 3 ML VIAL SQ PRN (11:58)
[2016-12-03 16:00] VITALS: BP 101/55
[2016-12-03 20:00] VITALS: BP 105/56
[2016-12-03] MEDS: INSULIN DETEMIR 100 UNIT/ML CARTRIDGE SQ SCH (21:56)
[2016-12-04] MEDS: ALBUTEROL FS 2.5 MG/3 ML VIAL.NEB NEB SCH ×4 (01:02→20:29)
[2016-12-04] MEDS: TRAMADOL HCL 50 MG TABLET PO PRN ×3 (02:34→16:48)
[2016-12-04] MEDS: BLOOD SUGAR DIAGNOSTIC 1 EACH STRIP IN SCH ×4 (06:33→21:48)
[2016-12-04 08:00] VITALS: BP 104/70
[2016-12-04] MEDS ORDERED: FUROSEMIDE 80 MG TABLET PO SCH (09:00)
[2016-12-04] MEDS ORDERED: POTASSIUM CHLORIDE 20 MEQ TAB.PRT.SR PO SCH (09:00)
[2016-12-04] MEDS: MULTIPLE VIT/MINERALS 1 EA TABLET PO SCH (09:20)
[2016-12-04] MEDS: LACTULOSE 10 G/15 ML UDC (PYXIS) PO SCH ×3 (09:20→17:33)
[2016-12-04] MEDS: GUAIFENESIN LA 600 MG TABLET.SA PO SCH ×2 (09:20→21:47)
[2016-12-04] MEDS: METFORMIN XR 500 MG TAB.SR.24H PO SCH ×2 (09:21→17:33)
[2016-12-04] MEDS: CYANOCOBALAMIN 500 MCG TABLET PO SCH (09:21)
[2016-12-04] MEDS: POTASSIUM CHLORIDE 20 MEQ TAB.PRT.SR PO SCH (09:21)
[2016-12-04] MEDS: FUROSEMIDE 80 MG TABLET PO SCH (09:21)
[2016-12-04] MEDS: PANTOPRAZOLE 40 MG TABLET.DR PO SCH (09:21)
[2016-12-04] MEDS: BOOST GLUCOSE CONTROL VANILLA 237 ML BOX PO SCH (09:24)
[2016-12-04] MEDS: RIVAROXABAN 10 MG TABLET PO SCH (09:24)
[2016-12-04] MEDS: NEOMY SULF/BACITRAC ZN/POLY 15 GM TUBE TP SCH (09:33)
[2016-12-04] MEDS ORDERED: BUMETANIDE INJ 16 MG in IV NS 0.9% 16 ML IV ONE (10:00)
[2016-12-04] MEDS ORDERED: IV SET PRIMARY PUMP SET 1 EA INFUS.SET MC ONE (11:11)
[2016-12-04 12:34] LABS: CALCIUM, SERUM 9.1 mg/dL (8.5-10.1); CREATININE 0.6 mg/dL (0.6-1.3); POTASSIUM 4.3 mmol/L (3.5-5.1)
[2016-12-04 12:35] LABS: MAGNESIUM 1.9 mg/dL (1.8-2.4)
[2016-12-04] MEDS: INSULIN REGULAR, HUMAN 100 UNIT/ML 3 ML VIAL SQ PRN ×2 (12:44→21:53)
[2016-12-04 13:31] LABS: BASOPHILS # (AUTO) 0.1 /CMM (0.0-0.2); BASOPHILS % (AUTO) 0.6 % (0.0-2.0); EOSINOPHILS # (AUTO) 0.4 /CMM (0.0-0.7); EOSINOPHILS % (AUTO) 4.2 % (0.0-6.0); HEMATOCRIT 45 % (33-45); HEMOGLOBIN 14.2 g/dL (11.5-14.8); LYMPHOCYTES # (AUTO) 0.9 /CMM (0.8-4.8); LYMPHOCYTES % (AUTO) 8.8 % (20.0-44.0); MEAN CORPUSCULAR HEMOGLOBIN 23 PG (26.0-33.0); MEAN CORPUSCULAR HGB CONC 31 g/dl (31.0-36.0); MEAN CORPUSCULAR VOLUME 75 fL (82-100); MONOCYTES # (AUTO) 1.2 /CMM (0.1-1.30); MONOCYTES % (AUTO) 11.2 % (2.0-12.0); NEUTROPHILS % (AUTO) 75.2 % (43.0-81.0); PLATELET COUNT (AUTO) 311 /CMM (150-450); RDW COEFFICIENT OF VARIATION 17.9 (11.5-15.0); RED BLOOD CELL COUNT(AUTO) 6.06 MIL/uL (4.0-5.2); WHITE BLOOD COUNT (AUTO) 10.6 K/uL (4.3-11.0)
[2016-12-04 16:00] VITALS: BP 111/71
[2016-12-04 20:00] VITALS: BP 106/61
[2016-12-04] MEDS: INSULIN DETEMIR 100 UNIT/ML CARTRIDGE SQ SCH (22:00)
[2016-12-05] MEDS: ALBUTEROL FS 2.5 MG/3 ML VIAL.NEB NEB SCH ×4 (01:10→20:39)
[2016-12-05] MEDS: TRAMADOL HCL 50 MG TABLET PO PRN ×2 (05:27→20:36)
[2016-12-05] MEDS: BLOOD SUGAR DIAGNOSTIC 1 EACH STRIP IN SCH ×4 (06:44→22:24)
[2016-12-05 08:00] VITALS: BP 94/60
[2016-12-05 08:17] LABS: BASOPHILS % (AUTO) 0.1 % (0.0-2.0); EOSINOPHILS # (AUTO) 0.4 /CMM (0.0-0.7); EOSINOPHILS % (AUTO) 3.4 % (0.0-6.0); HEMATOCRIT 47 % (33-45); HEMOGLOBIN 14.1 g/dL (11.5-14.8); LYMPHOCYTES % (AUTO) 8.5 % (20.0-44.0); MEAN CORPUSCULAR HEMOGLOBIN 23 PG (26.0-33.0); MEAN CORPUSCULAR HGB CONC 30 g/dl (31.0-36.0); MEAN CORPUSCULAR VOLUME 76 fL (82-100); MONOCYTES # (AUTO) 0.9 /CMM (0.1-1.30); MONOCYTES % (AUTO) 7.7 % (2.0-12.0); NEUTROPHILS # (AUTO) 9.4 /CMM (1.8-8.9); NEUTROPHILS % (AUTO) 80.3 % (43.0-81.0); PLATELET COUNT (AUTO) 349 /CMM (150-450); RDW COEFFICIENT OF VARIATION 19.7 (11.5-15.0); WHITE BLOOD COUNT (AUTO) 11.8 K/uL (4.3-11.0)
[2016-12-05 08:42] LABS: CALCIUM, SERUM 9.2 mg/dL (8.5-10.1); CREATININE 0.6 mg/dL (0.6-1.3); MAGNESIUM 1.6 mg/dL (1.8-2.4); PHOSPHORUS 4.9 mg/dL (2.5-4.9); POTASSIUM 4.2 mmol/L (3.5-5.1)
[2016-12-05] MEDS ORDERED: MORPHINE SULFATE INJ 2 MG/ML DISP.SYRIN IV ONE (08:45)
[2016-12-05] MEDS: METFORMIN XR 500 MG TAB.SR.24H PO SCH ×2 (09:00→17:00)
[2016-12-05] MEDS: FUROSEMIDE 80 MG TABLET PO SCH (09:00)
[2016-12-05] MEDS: GUAIFENESIN LA 600 MG TABLET.SA PO SCH ×2 (09:00→20:21)
[2016-12-05] MEDS: BOOST GLUCOSE CONTROL VANILLA 237 ML BOX PO SCH (09:00)
[2016-12-05 09:25] LABS: ALBUMIN 3.3 g/dL (3.4-5.0); BILIRUBIN,TOTAL 0.6 mg/dL (0.2-1.0); TOTAL PROTEIN, SERUM 8.8 g/dL (6.4-8.2)
[2016-12-05 10:59] LABS: ABG BASE EXCESS 4.7 mmol/L; ABG OXYGEN SATURATION 90.5 % (92.0-98.5); ABG PCO2 49.1 mmHg (35.0-45.0); ABG PO2 61.1 mmHg (75.0-100.0); AaDO2 182.1 mmHg; COHb 1.9 % (0.5-1.5); MetHb 0.6 % (0.0-1.5); O2Hb 88.2 % (94.0-97.0); SITE, ABG Right Radial; VENT MODE, BG NASAL CANNULA
[2016-12-05] MEDS ORDERED: LIDOCAINE HCL/PF 1% 30 ML SDV ONE (11:06)
[2016-12-05] MEDS: PANTOPRAZOLE 40 MG TABLET.DR PO SCH (11:15)
[2016-12-05] MEDS: LACTULOSE 10 G/15 ML UDC (PYXIS) PO SCH ×3 (11:15→17:28)
[2016-12-05] MEDS: CYANOCOBALAMIN 500 MCG TABLET PO SCH (11:16)
[2016-12-05] MEDS: MULTIPLE VIT/MINERALS 1 EA TABLET PO SCH (11:16)
[2016-12-05] MEDS: POTASSIUM CHLORIDE 20 MEQ TAB.PRT.SR PO SCH (11:17)
[2016-12-05] MEDS: RIVAROXABAN 10 MG TABLET PO SCH (11:19)
[2016-12-05] MEDS: NEOMY SULF/BACITRAC ZN/POLY 15 GM TUBE TP SCH (11:20)
[2016-12-05] MEDS ORDERED: SECONDARY IV SET 1 EA INFUS.SET MC ONE (11:52)
[2016-12-05] MEDS: Magnesium 1GM/D5W 100ML PREMIX 100 ML IV SCH ×2 (11:57→12:59)
[2016-12-05] MEDS ORDERED: IV SET PRIMARY PUMP SET 1 EA INFUS.SET MC ONE (11:57)
[2016-12-05] MEDS: INSULIN REGULAR, HUMAN 100 UNIT/ML 3 ML VIAL SQ PRN (13:04)
[2016-12-05 16:10] VITALS: BP 122/67
[2016-12-05 20:00] VITALS: BP 113/63
[2016-12-05] MEDS: INSULIN DETEMIR 100 UNIT/ML CARTRIDGE SQ SCH (22:00)
[2016-12-06] MEDS: ALBUTEROL FS 2.5 MG/3 ML VIAL.NEB NEB SCH ×4 (01:49→19:17)
[2016-12-06] MEDS: HYDROCODONE/APAP 5/325MG 1 EACH TABLET PO PRN ×2 (05:31→10:15)
[2016-12-06] MEDS: BLOOD SUGAR DIAGNOSTIC 1 EACH STRIP IN SCH ×3 (06:58→17:33)
[2016-12-06 07:28] LABS: ALBUMIN 3.1 g/dL (3.4-5.0); BILIRUBIN,TOTAL 0.7 mg/dL (0.2-1.0); CREATININE 0.5 mg/dL (0.6-1.3); MAGNESIUM 1.9 mg/dL (1.8-2.4); TOTAL PROTEIN, SERUM 8.5 g/dL (6.4-8.2)
[2016-12-06 08:00] VITALS: BP 110/74
[2016-12-06 08:37] LABS: EOSINOPHILS # (AUTO) 0.4 /CMM (0.0-0.7); EOSINOPHILS % (AUTO) 3.3 % (0.0-6.0); HEMATOCRIT 45 % (33-45); HEMOGLOBIN 13.9 g/dL (11.5-14.8); LYMPHOCYTES # (AUTO) 1.1 /CMM (0.8-4.8); LYMPHOCYTES % (AUTO) 10.7 % (20.0-44.0); MEAN CORPUSCULAR HEMOGLOBIN 23 PG (26.0-33.0); MEAN CORPUSCULAR HGB CONC 31 g/dl (31.0-36.0); MEAN CORPUSCULAR VOLUME 76 fL (82-100); MONOCYTES # (AUTO) 1.2 /CMM (0.1-1.30); MONOCYTES % (AUTO) 10.7 % (2.0-12.0); NEUTROPHILS # (AUTO) 8.1 /CMM (1.8-8.9); NEUTROPHILS % (AUTO) 75.3 % (43.0-81.0); PLATELET COUNT (AUTO) 330 /CMM (150-450); RDW COEFFICIENT OF VARIATION 19.5 (11.5-15.0); RED BLOOD CELL COUNT(AUTO) 5.96 MIL/uL (4.0-5.2); WHITE BLOOD COUNT (AUTO) 10.8 K/uL (4.3-11.0)
[2016-12-06] MEDS: TRAMADOL HCL 50 MG TABLET PO PRN ×2 (08:40→20:33)
[2016-12-06] MEDS: BOOST GLUCOSE CONTROL VANILLA 237 ML BOX PO SCH (09:00)
[2016-12-06] MEDS: METFORMIN XR 500 MG TAB.SR.24H PO SCH ×2 (09:00→17:00)
[2016-12-06] MEDS: FUROSEMIDE 100 MG/10 ML VIAL IV SCH ×3 (10:32→16:30)
[2016-12-06] MEDS: CYANOCOBALAMIN 500 MCG TABLET PO SCH (10:32)
[2016-12-06] MEDS: GUAIFENESIN LA 600 MG TABLET.SA PO SCH (10:32)
[2016-12-06] MEDS: POTASSIUM CHLORIDE 20 MEQ TAB.PRT.SR PO SCH (10:32)
[2016-12-06] MEDS: MULTIPLE VIT/MINERALS 1 EA TABLET PO SCH (10:32)
[2016-12-06] MEDS: LACTULOSE 10 G/15 ML UDC (PYXIS) PO SCH ×3 (10:33→18:00)
[2016-12-06] MEDS: RIVAROXABAN 10 MG TABLET PO SCH (10:33)
[2016-12-06] MEDS: PANTOPRAZOLE 40 MG TABLET.DR PO SCH (10:35)
[2016-12-06] MEDS: NEOMY SULF/BACITRAC ZN/POLY 15 GM TUBE TP SCH (10:36)
[2016-12-06 15:53] VITALS: BP 104/65
[2016-12-06 20:48] VITALS: BP 97/68
== END 2016-12-06 21:00 | DRG 194 ==
LOC: ER 20:46 → TELE-TD 22:23 → MEDSG1 11-19 08:38 → ICUOV 11-20 09:24 → TELE-TD 11-23 13:05 → TELE1 11-24 10:21 → MEDSG1 11-24 15:29 → MED 12-03 06:29
PROVIDERS: ADMIT Family Medicine; ATTEND Family Medicine
PROC: 5A09457 Assistance with Respiratory Ventilation, 24-96 Consecutive Hours, Continuous Positive Airway Pressure (ICD-10-PCS; principal; 2016-11-20)
DX: I11.0 Hypertensive heart disease with heart failure (principal); J96.01 Acute respiratory failure with hypoxia; J96.02 Acute respiratory failure with hypercapnia; E43 Unspecified severe protein-calorie malnutrition; I27.2 Other secondary pulmonary hypertension; E66.2 Morbid (severe) obesity with alveolar hypoventilation; E83.42 Hypomagnesemia; E87.1 Hypo-osmolality and hyponatremia; J90 Pleural effusion, not elsewhere classified; I50.31 Acute diastolic (congestive) heart failure; J44.9 Chronic obstructive pulmonary disease, unspecified; Z86.73 Personal history of transient ischemic attack (TIA), and cerebral infarction without residual deficits; E11.9 Type 2 diabetes mellitus without complications; G47.33 Obstructive sleep apnea (adult) (pediatric); E87.6 Hypokalemia; G89.29 Other chronic pain; I25.10 Atherosclerotic heart disease of native coronary artery without angina pectoris; I89.0 Lymphedema, not elsewhere classified; N39.0 Urinary tract infection, site not specified; M81.0 Age-related osteoporosis without current pathological fracture; Z91.19 Patient's noncompliance with other medical treatment and regimen; I87.8 Other specified disorders of veins; F41.9 Anxiety disorder, unspecified; L98.8 Other specified disorders of the skin and subcutaneous tissue; S30.810A Abrasion of lower back and pelvis, initial encounter; I34.0 Nonrheumatic mitral (valve) insufficiency; F43.21 Adjustment disorder with depressed mood; F32.9 Major depressive disorder, single episode, unspecified; Z68.38 Body mass index [BMI] 38.0-38.9, adult; F39 Unspecified mood [affective] disorder; K21.9 Gastro-esophageal reflux disease without esophagitis; Z79.4 Long term (current) use of insulin; X58.XXXA Exposure to other specified factors, initial encounter; Y93.9 Activity, unspecified; Y92.129 Unspecified place in nursing home as the place of occurrence of the external cause; S00.401A Unspecified superficial injury of right ear, initial encounter
CPT/HCPCS: 36415; 36600; 71010-TC; 80048-TC; 80053-TC; 80076-TC; 81000-TC; 82803-TC; 82962-TC; 83735-TC; 83880; 84100-TC; 84484-TC; 85025-TC; 85730-TC; 87081-TC; 87086-TC; 93307-TC; 94762-TC; 94799-TC; A4216; A4606; A6403; J0696; J1815; J1940; J2270; J3475; J3480; J3490; J7050; J7060; Z7610